=== PATIENT | female | born 1955 | race Caucasian/White ===

== ENCOUNTER 2019-05-01 06:27 | Emergency (ER) | payer BC, SELFPAY ==
[2019-05-01 06:32] VITALS: BP 176/111; PULSE 73; RESP 16; TEMP 36.5; O2SAT 99
--- NOTE | 2019-05-01 06:42 | ED.GENADUL_ITS ---
Discharge Plan Disposition Patient Disposition: HOME Condition: Good Discharge Details Chief Complaint: Nausea/Vomit/Diar Clinical Impression: Dehydration, Nausea Primary Care Provider: None,None ED Provider: Provider,Temporary Home Meds and New Rx's Prescriptions: No Action acetaminophen [Tylenol] 325 MG tablet 2 mg PO PRN PRNRF: 0 aspirin 325 MG tablet 1 mg PO PRN PRNRF: 0 Discharge Instructions Instructions: Dehydration (ED), Diet for Stomach Ulcers and Gastritis (ED) Additional Instructions: At this time your labs and heart markers show no signs of a heart attack. Your electrolytes are normal. Your renal function is good. Please continue to drink 10 to 12 cups of water per day. Avoid spicy foods, citrus foods, and tomato- based products. Please follow-up closely with your primary care provider. If your symptoms return I would recommend taking some Maalox to help with your symptoms. If you notice any worsening of your symptoms, or any new symptoms such as vomiting, diarrhea, fever, chills, shortness of breath, chest pain, numbness, weakness, or fainting , please return immediately to the emergency department for reevaluation. Please follow up with your primary care provider as soon as possible for reassessment and reevaluation. As always, it was a pleasure participating in your medical care today. Medical Decision Making This is a 63-year-old female with no significant past medical history except for chronic tinnitus which she states is from her occupation who presents today for evaluation of multiple nonspecific symptoms. Symptoms include but are not limited to nausea, mild dizziness, chronic tinnitus, swelling by her earlobes and her TMJ bilaterally, intermittent foot redness and tingling that is not present here currently, mild fatigue, generalized malaise. Patient states that the symptoms have a notable chronic component, however were all significantly worsened 3 days ago when she ate some sugary treats at a family member's birthday green party. Things were fine shortly after that however when she awoke this morning she again felt odd. She denies any other particular aggravating or relieving factors. Patient's physical exam is notably nonspecific. No focal neurologic deficits, no nystagmus, no abdominal pain on palpation. No focal abnormalities that I can appreciate. Differential includes mild dehydration, mild gastric ulcer or gastritis, potential virus, and much less likely cardiac etiology. However out of an abundance of precaution we will evaluate for all these concerning etiologies. We will rehydrate, treat and reassess. 7:48 AM Laboratory work-up reveals no white count, normal electrolytes, stable renal fun ction, unremarkable glucose magnesium and calcium. Lipase and troponin normal, EKG unremarkable. Thyroid function normal, urinalysis is unremarkable. Patient has complete resolution of her symptoms after GI cocktail meclizine and fluids. She is feeling much better. She is refusing any additional imaging including chest x-ray. Patient's atypical symptoms began between 3 and 4 AM, it is been o lian 3-1/2 hours since symptom onset, there is no indication for repeat EKG or troponin. Signs and symptoms are clinically consistent inconsistent with ACS, clinically consistent with mild dehydration and mild gastric irritation. Recommend diet changes, continued fluids at home, close follow-up with PCP. Discussed red flags which to return. I have extensively reviewed the treatment plan and discharge instructions with the patient and their family. I have addressed all patient concerns at this time. The patient and family was made aware of what symptoms to monitor for that would warrant a return to the emergency department. Discussed the plan with the patient and family, they demonstrate verbal understanding and agreement with our assessment and plan at this time. EKG 6: 50 Rate 63, intervals normal, sinus rhythm, no significant ST elevations or depressions, no evidence of STEMI. Inverted T wave is present in V1. No other abnormalities. HPI General Date/Time Provider Initiated Documentation: 05/01/19 06:30 . HPI Narrative: This is a 63-year-old female with no significant past medical history except for chronic tinnitus which she states is from her occupation who presents today for evaluation of multiple nonspecific symptoms. Symptoms include but are not limited to nausea, mild dizziness, chronic tinnitus, swelling by her earlobes and her TMJ bilaterally, intermittent foot redness and tingling that is not present here currently, mild fatigue, generalized malaise. Patient states that the symptoms have a notable chronic component, however were all significantly worsened 3 days ago when she ate some sugary treats at a family member's birthday green party. Things were fine shortly after that however when she awoke this morning she again felt odd. She denies any other particular aggravating or relieving factors. She denies any vomiting. She denies any falls or trauma. She denies any room spinning sensation. She denies any visual disturbance. She denies any chest pain, chest heaviness, chest tightness, shortness of breath, tearing sensation in the chest, arm or neck pain. She has no other complaints at this time. No other modifying factors. Family history is positive for heart disease in her father, as well as thyroid disease, and previous smoking history 11 years ago. Related Data Home Medications Medication Instructions Recorded Confirmed acetaminophen [Tylenol] 2 mg PO PRN PRN 01/28/13 05/01/19 aspirin 1 mg PO PRN PRN 01/28/13 05/01/19 Allergies Allergy/AdvReac Type Severity Reaction Status Date / Time No Known Allergies Allergy Unverified 01/28/13 09:41 General Stated Complaint: Nausea/Vomit/Diar VARUN: 3 Review of Systems All systems reviewed & are unremarkable except as noted in HPI and below PFSH Social History Smoking/Tobacco Use Status: Former Tobacco Use Alcohol Intake: current Alcohol Intake frequency: holidays/special occasions only Drug use: Never Substance use type: does not use Do you feel safe at home: Yes Do you feel safe in your relationship?: Yes Exam Narrative Exam Narrative: 1.Const: Well-nourished, Well-developed, appearing stated age 2.Eyes: PERRL, no conjunctival injection, and symmetrical lids. No horizontal vertical or rotatory nystagmus. 3.ENT: Atraumatic external nose and ears. Dry MM. Neck: Symmetric, trachea midline, No thyromegaly. Tympanic membranes guillaume and pearly bilaterally. No evidence of effusion or bulging. No swelling over the mastoid process, or the ear or the TM joint. Patient demonstrates good movement of cervical neck. There is no nuchal rigidity, no nuchal tenderness. Patient is able to flex the neck without any difficulty or significant pain. Negative Kernig's and Brudzinski sign. 4.CVS: +S1/S2, No murmurs or gallops. Peripheral pulses 2+ and equal in all extremities. Brisk capillary refill in all extremities. 5.RESP: Unlabored respiratory effort. Clear to auscultation bilaterally. No wheezes rales or rhonchi 6.GI: Soft, Nontender/Nondistended, No hepatosplenomegaly. No guarding or rebound. No pain at McBurney's point, negative Gardner sign. No epigastric tenderness. 7.MSK: Normocephalic/Atraumatic, Extremities w/o deformity or ttp No cyanosis or clubbing, Normal movement of all extremities, no calf tenderness. 8.Skin: Warm, Dry. No rashes or lesions. No redness. 9.Neuro: housekeeping worker II-XII grossly intact. Sensation grossly intact, no focal neurologic deficits. All 6 cardinal planes of vision are fully intact. No evidence of rotatory or vertical nystagmus. The patient demonstrated a normal slvtcv-gjvs-tinyyo, good dexterity. There was no evidence of dysdiadochokinesia. Patient was able to ambulate without difficulty. There was no wide-based gait.Sensation was intact bilaterally as well as muscle strength bilaterally for all extremities. no slurring, or miss pronunciation. 10.Psych: (AAO) x3. Appropriate mood and affect Course Vital Signs Vital signs: Vital Signs Temperature 36.5 C 05/01/19 06:32 Pulse 73 05/01/19 06:32 Respiratory Rate 16 05/01/19 06:32 Blood Pressure 176/111 H 05/01/19 06:32 Pulse Oximetry 99 05/01/19 06:32 Temperature 36.5 C 05/01/19 06:32 Temperature Source Skin 05/01/19 06:32 Pulse 73 05/01/19 06:32 Respiratory Rate 16 05/01/19 06:32 Blood Pressure 176/111 H 05/01/19 06:32 Blood Pressure Position Sitting 05/01/19 06:32 Pulse Oximetry 99 05/01/19 06:32 Oxygen Delivery Method Room Air 05/01/19 06:32 Oxygen Flow Rate 0 05/01/19 06:32 Sign Out Sign Out Data: Sign Out Comment: Make symptoms of dizziness, nausea, mild malaise. Appears mildly dehydrated. Treating with meclizine, GI cocktail, fluids. Reevaluate after cardiac work-up and labs return Last updated by Jg Ann DO at 05/01/19 06:53
[2019-05-01] MEDS: Meclizine 25 MG TAB PO (06:45)
[2019-05-01] MEDS: Ondansetron 4 MG/2 ML VIAL IVP (06:46)
[2019-05-01 06:58] LABS: Abs Immature Grans 0.01 k/cumm (0.0-0.09); Absolute Basophil Count 0.03 k/cumm (0.0-0.2); Absolute Eosinophil Count 0.65 k/cumm (0.0-0.7); Absolute Lymphocyte Count 2.03 k/cumm (1.2-3.4); Absolute Monocyte Count 0.55 k/cumm (0.11-0.7); Basophils % 0.3; Eosinophils % 7.4; HCT 44.7 % (36.0-46.0); HGB 14.6 g/dL (12.0-15.5); Immature Grans % 0.1 %; Lymphocytes % 23.1; Mean Corp. HGB Concentration 32.7 g/dL (32.0-36.0); Mean Corpuscular Hemoglobin 29.3 pg (27.0-33.0); Mean Corpuscular Volume 89.6 fL (80-95); Mean Platelet Volume 9.7 fL (8.0-11.0); Monocytes % 6.3; Neutrophils % 62.8; Platelet Count 334 x1000/uL (130-400); RBC 4.99 m/cumm (4.00-5.20); RBC Distribution Width 13.6 % (11.7-14.6); White Blood Cell Count 8.77 k/cumm (4.4-10.8)
[2019-05-01 07:10] LABS: Bilirubin Negative (Negative); Blood Negative (Negative); Clarity Clear (Clear); Glucose Negative (Negative); Ketones Negative (Negative); Leukocyte Esterase Small (Negative); Nitrite Negative (Negative); Urobilinogen 0.2 EU/dL (Up TO 0.2); pH 6.5 (5-8)
[2019-05-01 07:12] LABS: PTT Activated 28.3 sec (21.0-31.4); Prothrombin Time 10.1 sec (9.3-11.0)
[2019-05-01 07:13] LABS: ALT 40 U/L (14-59); AST 27 U/L (15-37); Albumin 3.7 g/dL (3.4-5.0); Alkaline Phosphatase 161 U/L (46-116); Anion Gap 11.6 mmol/L (3-11); BUN 14 mg/dL (7-18); Bilirubin, Total 0.4 mg/dL (0.2-1.0); CO2 24.4 mmol/L (21.0-32.0); CREATININE 1.07 mg/dL (0.55-1.02); Calcium 9.2 mg/dL (8.5-10.1); Chloride 105 mmol/L (98-107); Estimated GFR 52.13 (mL/min/1.73m2); Glucose 114 mg/dL (74-106); Lipase 163 U/L (73-393); Potassium 3.7 mmol/L (3.5-5.1); Sodium 141 mmol/L (136-145); Total Protein 7.6 g/dL (6.4-8.2)
[2019-05-01 07:16] LABS: Troponin I < 0.05 ng/Ml (<0.06)
[2019-05-01] MEDS: Normal Saline 1,000 ML 1000 ML IV (07:18)
[2019-05-01 07:19] LABS: Magnesium 2.2 mg/dL (1.8-2.4)
[2019-05-01 07:34] LABS: TSH (W/Ref FT4) 2.61 uIU/mL (0.36-3.74)
[2019-05-01 07:44] LABS: Bacteria Rare HPF (Negative); C & S Indicated? Yes; Casts Negative LPF (Negative); Crystals Negative HPF (Negative); Epithelial Cells Few HPF (Negative); Mucus Trace (Negative); Other Cells Rare Renal (Negative); RBC 0-2 HPF (0-2)
[2019-05-01 07:54] VITALS: BP 143/69; PULSE 61; RESP 15; TEMP 36.7; O2SAT 98
[2019-05-01 08:02] VITALS: BP 143/69; PULSE 61; RESP 15; TEMP 36.7; O2SAT 98
== END 2019-05-01 08:06 | disposition home or self-care (01) ==
PROVIDERS: Emergency Provider Student in an Organized Health Care Education/Training Program
DX: R11.0 Nausea (principal); E86.0 Dehydration; R42 Dizziness and giddiness; H93.19 Tinnitus, unspecified ear
CPT/HCPCS: 36415; 80053; 83690; 93005; 96361; 96374; 99284; 81003; 81015; 83735; 84443; 84484; 85025; 85610; 85730; 87086; 93010; J2405

== ENCOUNTER 2021-03-17 09:38 | Emergency (ER) | payer BC, SELFPAY ==
[2021-03-17] VITALS (21 sets, daily range): BP systolic 121–163; BP diastolic 66–91; PULSE 51–65; RESP 12–22; TEMP 36.6; O2SAT 95–98
--- NOTE | 2021-03-17 09:30 | RT.EKG_ITS ---
APPROVED REPORT Exam: Resting ECG Reason for Exam: high blood pressure Patient Location: E HR:60 bpm ECG Measurements Heart Rate 60 AXIS NE 145 P 56 QRSd 103 QRS 26 QT 427 T 50 QTc 428 Conclusion Sinus rhythm...normal P axis, V-rate 60- 99 Sinus. No STEMI. I have reviewed and interpreted ECG and agree with software generated interpretation.
--- NOTE | 2021-03-17 10:02 | ED.GENADUL_ITS ---
Discharge Plan Disposition Patient Disposition: HOME Condition: Improving Discharge Details Clinical Impression: Hypertension, Dizziness, Fatigue Primary Care Provider: None,None ED Provider: Beata Lorenzo Home Meds and New Rx's Prescriptions: Continued aspirin 325 MG tablet 365 mg PO PRN PRNRF: 0 Discharge Instructions Instructions: Hypertension (ED), Dizziness (ED), Fatigue (ED) Additional Instructions: Your lab work, EKGs and imaging today is reassuring and shows no evidence of acute abnormal findings. It is recommended that you limit sodium in your diet as this may contribute to high blood pressure. Check your blood pressure regularly. Drink plenty of fluids and get plenty of rest. You will receive a call from care management regarding a follow-up appointment with a primary care doctor to establish care and for recheck and continued monitoring of your blood pressure. Return immediately to the emergency department if you develop any worsening or new concerning symptoms. 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 BP per the school nurse noted a systolic of 187. Blood pressure on arrival here 162/82. Still complains of head pressure. She denies any chest pain. EKG noted a rate of 60, sinus, no STEMI nondiagnostic. She has no focal deficits on exam. She appears slightly anxious but nontoxic. Differential diagnosis includes anxiety, electrolyte abnormality, dehydration, CVA. History and presentation does not appear consistent with acs, aortic dissection or PE. Will place an IV, bolus IV fluids, screening labs, CT head, chest x-ray and reassess. Labs and imaging reviewed and unremarkable. Trop and d-dimer within normal limits. CT head and CXR negative. Pt agreeable to stay for repeat troponin which was negative and repeat EKG unchanged. BP 135/72. Pt reassessed and she denied any headache, dizziness or chest pain and she is requesting to go home. Heart score 2. Pt was placed on care management list to establish care with a pcp and for re-evaluation. Advised to continue to monitor her blood pressure at home. Usual and customary return precautions given prior to discharge. Medical Records Medical records reviewed: Yes I reviewed the patient's medical records. Imaging Data Radiologic Study: Radiologist's impression: XR CHEST 2V PA LATERAL CLINICAL HISTORY: palpitations, r/o acute disease. TECHNIQUE: 2D digital imaging was performed. COMPARISON: No exams were available for comparison FINDINGS: Heart size is normal. The mediastinum is not widened. Lungs are clear. No infiltrates nor pleural effusions. IMPRESSION: No acute pulmonary findings. CT HEAD WO CLINICAL HISTORY: head pressure, r/o acute cva. TECHNIQUE: Imaging Protocol: Axial computed tomography images with coronal and sagittal reformatted images were created and reviewed COMPARISON: No exams were available for comparison FINDINGS: There are no skull fractures nor fluid in the visualized paranasal sinuses. There is no evidence of intracranial hemorrhage, mass effect, or shift of midline structures. There are no extra-axial fluid collections. The ventricles are not enlarged or shifted and there is no blood within the ventricular system nor within the basal cisterns. IMPRESSION: No acute intracranial findings on this noninfused CT scan of the brain. Lab Data Lab results reviewed: Yes I reviewed the patient's lab results. Labs: Laboratory Tests Range/Units 03/17/21 03/17/21 03/17/21 09:50 09:50 09:50 WBC (4.4-10.8) 10^3/uL 8.63 RBC (3.93-5.22) 10^6/uL 4.72 Hgb (11.2-15.7) g/dL 13.7 Hct (36.0-46.0) % 42.4 MCV (80-95) fL 89.8 MCH (27.0-33.0) pg 29.0 MCHC (32.0-36.0) % 32.3 RDW (11.7-14.6) % 13.0 Plt Count (130-400) 10^3/uL 306 MPV (8.0-11.0) fL 9.8 Immature Gran % 0.3 Neutrophils % 65.4 Lymphocytes % 23.4 Monocytes % 5.2 Eosinophils % 5.4 Basophils % 0.3 Nucleated RBC % % 0 Absolute Neutrophils (1.2-6.7) 10^3/uL 5.63 Absolute Lymphocytes (1.2-3.4) 10^3/uL 2.02 Absolute Monocytes (0.1-0.8) 10^3/uL 0.45 Absolute Eosinophils (0.0-0.7) 10^3/uL 0.47 Absolute Basophils (0.0-0.2) 10^3/uL 0.03 D-Dimer (<500) ng/mlFEU Sodium (136-145) mmol/L 140 Potassium (3.5-5.1) mmol/L 4.0 Chloride (98-107) mmol/L 104 Carbon Dioxide (21.0-32.0) mmol/L 25.9 Anion Gap (3-11) mmol/L 10.1 BUN (7-18) mg/dL 20 H Creatinine (0.55-1.02) mg/dL 0.9 Estimated GFR/1.73 m2 (mL/min/1.73m2) >= 60.00 Glucose (74-106) mg/dL 106 Calcium (8.5-10.1) mg/dL 9.3 Magnesium (1.8-2.4) mg/dL 2.1 Total Bilirubin (0.2-1.0) mg/dL 0.3 AST (15-37) U/L 21 ALT (14-59) U/L 34 Alkaline Phosphatase (46-116) U/L 174 H Troponin I (<0.06) ng/mL < 0.05 Total Protein (6.4-8.2) g/dL 7.8 Albumin (3.4-5.0) g/dL 3.8 TSH (0.36-3.74) uIU/mL 2.17 Range/Units 03/17/21 03/17/21 12:10 13:00 WBC (4.4-10.8) 10^3/uL RBC (3.93-5.22) 10^6/uL Hgb (11.2-15.7) g/dL Hct (36.0-46.0) % MCV (80-95) fL MCH (27.0-33.0) pg MCHC (32.0-36.0) % RDW (11.7-14.6) % Plt Count (130-400) 10^3/uL MPV (8.0-11.0) fL Immature Gran % Neutrophils % Lymphocytes % Monocytes % Eosinophils % Basophils % Nucleated RBC % % Absolute Neutrophils (1.2-6.7) 10^3/uL Absolute Lymphocytes (1.2-3.4) 10^3/uL Absolute Monocytes (0.1-0.8) 10^3/uL Absolute Eosinophils (0.0-0.7) 10^3/uL Absolute Basophils (0.0-0.2) 10^3/uL D-Dimer (<500) ng/mlFEU 352 Sodium (136-145) mmol/L Potassium (3.5-5.1) mmol/L Chloride (98-107) mmol/L Carbon Dioxide (21.0-32.0) mmol/L Anion Gap (3-11) mmol/L BUN (7-18) mg/dL Creatinine (0.55-1.02) mg/dL Estimated GFR/1.73 m2 (mL/min/1.73m2) Glucose (74-106) mg/dL Calcium (8.5-10.1) mg/dL Magnesium (1.8-2.4) mg/dL Total Bilirubin (0.2-1.0) mg/dL AST (15-37) U/L ALT (14-59) U/L Alkaline Phosphatase (46-116) U/L Troponin I (<0.06) ng/mL < 0.05 Total Protein (6.4-8.2) g/dL Albumin (3.4-5.0) g/dL TSH (0.36-3.74) uIU/mL ECG Data Attestation: I personally reviewed and interpreted this ECG (s) as follows: Interpretation: #1 -- Rate of 60, sinus, no acute ST elevation or depression, [place] 145. QTc 428. #2 -- Rate of 53, sinus, no acute ST elevation or depression, [place] 156, QTc 437. HPI General Mode of arrival: ambulatory . Date/Time Provider Initiated Documentation: 03/17/21 09:57 . Limitations to Documentation: no limitations . Information obtained by: patient . HPI Narrative: Patient is a 65-year-old female who presents for a complaint of head pressure, shaking, lightheadedness, tingling in hands and feet, feeling of heart pounding and sweating that occurred while throwing a basketball at work. Patient states she was in the gym tossing a basketball around when she felt head pressure then nausea, lightheaded, sweating, shaking and tingling in her hands and feet. She states the head pressure is still present and 7/10. She denies any sensation of chest pain, shortness of breath, vomiting, abdominal pain, diarrhea or recent illness. She states she has been quite active recently, with a lot of housework and busy with her job. She is fully vaccinated and denies any known exposure to Covid. She denies any known history of high blood pressure and states the nurse today took her blood pressure and there was a systolic of 187. Related Data Home Medications Medication Instructions Recorded Confirmed aspirin 365 mg PO PRN PRN 01/28/13 03/17/21 Allergies Allergy/AdvReac Type Severity Reaction Status Date / Time No Known Allergies Allergy Unverified 03/17/21 09:52 General Stated Complaint: Dizzy/Sync VARUN: 2 Review of Systems All systems reviewed & are unremarkable except as noted in HPI and below Constitutional Constitutional: Reports as per HPI, Denies chills, Denies fever(s) and Reports headache(s) (head pressure) Eyes Eyes: Denies blurry vision ENT Ears, Nose, Mouth, and Throat: Reports dizziness, Reports headache(s) (head pressure), Denies sore throat and Denies throat swelling Cardiovascular Cardiovascular: Denies chest pain, Reports palpitations and Denies dyspnea Respiratory Respiratory: Denies cough and Denies dyspnea Gastrointestinal Gastrointestinal: Denies abdominal pain, Denies diarrhea and Denies vomiting Genitourinary Genitourinary: Denies hematuria and Denies dysuria Musculoskeletal Musculoskeletal: Denies back pain, Denies numbness and Reports tingling (in hands and feet) Integumentary/Breasts Skin/Breast: Denies lesions and Denies rash Neurologic Neurologic: Reports dizziness, Reports headache(s) (head pressure), Denies localized weakness, Denies numbness and Reports tingling (in hands and feet) Endocrine Endocrine: Reports palpitations Allergic/Immunologic Allergic/Immunologic: Denies throat swelling FOR[facility]LY [facility], 1928–1983 Active Problem List (Updated 03/17/21 @ 15:06 by Beata Lorenzo DO) Hypertension (Chronic) Dizziness (Acute) Fatigue (Acute) Medical History (Updated 03/17/21 @ 15:06 by Beata Lorenzo DO) No significant past medical history Surgical History (Updated 03/17/21 @ 11:39 by Beata Lorenzo DO) History of ankle surgery Social History Smoking/Tobacco Use Status: Former Tobacco Use Smoking risk assessment performed?: Yes Alcohol Intake: current Alcohol Intake frequency: holidays/special occasions only Drug use: Never Substance use type: does not use Do you feel safe at home: Yes Do you feel safe in your relationship?: Yes Exam Const General: cooperative, healthy appearing and no acute distress HENMT Head: normal to inspection Face and sinus: normal facial exam Eyes General: appearance normal, both eyes and all related structures Pupils: PERRL EOM: EOM intact bilaterally Neck Neck: normal visual inspection and No submandibular swelling Lymphatic: no lymphadenopathy noted Chest Chest: normal inspection of the chest and no tenderness Resp Effort & Inspection: normal respiratory effort and able to speak in complete sentences Auscultation: clear to auscultation bilaterally Cardio Rate: regular rate Rhythm: regular rhythm GI Inspection: normal to inspection Palpation: soft, not firm, not rigid and nontender Auscultation: normal bowel sounds Skin General skin exam: no rashes or lesions noted Neuro General: patient alert, patient awake, patient oriented x3, moves all extremities, no meningeal signs and no focal motor deficits Cranial Nerves: CN's II-XI intact bilaterally Cognition: normal cognition Speech: speech normal Motor: muscle tone normal throughout and strength 5/5 throughout Sensory Exam: no sensory deficits noted Extrem General: normal to inspection, full ROM, capillary refill normal, no calf tenderness bilaterally and no edema Psych Appearance: grossly normal Mental Status: mental status grossly normal Speech and Movement: speech and movement normal Affect: normal affect Course Vital Signs Vital signs: Vital Signs Temperature 97.8 F 03/17/21 09:43 Pulse 65 03/17/21 09:43 Respiratory Rate 21 03/17/21 09:43 Blood Pressure 162/82 H 03/17/21 09:43 Pulse Oximetry 98 03/17/21 09:43 Temperature 97.8 F 03/17/21 09:43 Temperature Source Oral 03/17/21 09:43 Pulse 65 03/17/21 09:43 Respiratory Rate 20 03/17/21 09:56 Respiratory Effort 03/17/21 09:56 Respiratory Depth Normal 03/17/21 09:56 Respiratory Pattern Normal 03/17/21 09:56 Blood Pressure 162/82 H 03/17/21 09:43 Blood Pressure Position Supine 03/17/21 09:43 Pulse Oximetry 98 03/17/21 09:43 Oxygen Delivery Method Room Air 03/17/21 09:43 Oxygen Flow Rate 0 03/17/21 09:43 Pain Level 0 03/17/21 09:43
[2021-03-17 10:25] LABS: Abs Immature Grans 0.03 10^3/uL (0.0-0.06); Absolute Basophil Count 0.03 10^3/uL (0.0-0.2); Absolute Eosinophil Count 0.47 10^3/uL (0.0-0.7); Absolute Lymphocyte Count 2.02 10^3/uL (1.2-3.4); Absolute Monocyte Count 0.45 10^3/uL (0.1-0.8); Absolute Neutrophil Count 5.63 10^3/uL (1.2-6.7); Basophils % 0.3; Eosinophils % 5.4; HCT 42.4 % (36.0-46.0); HGB 13.7 g/dL (11.2-15.7); Immature Grans % 0.3; Lymphocytes % 23.4; MCHC 32.3 % (32.0-36.0); MCV 89.8 fL (80-95); MPV 9.8 fL (8.0-11.0); Monocytes % 5.2; Neutrophils % 65.4; Nucleated RBC 0 %; Platelet Count 306 10^3/uL (130-400); RBC 4.72 10^6/uL (3.93-5.22); RDW-SD 42.6 fL; WBC 8.63 10^3/uL (4.4-10.8)
[2021-03-17 10:41] LABS: ALT 34 U/L (14-59); AST 21 U/L (15-37); Albumin 3.8 g/dL (3.4-5.0); Alkaline Phosphatase 174 U/L (46-116); Anion Gap 10.1 mmol/L (3-11); BUN 20 mg/dL (7-18); Bilirubin, Total 0.3 mg/dL (0.2-1.0); CO2 25.9 mmol/L (21.0-32.0); CREATININE 0.9 mg/dL (0.55-1.02); Calcium 9.3 mg/dL (8.5-10.1); Chloride 104 mmol/L (98-107); Glucose 106 mg/dL (74-106); Magnesium 2.1 mg/dL (1.8-2.4); Sodium 140 mmol/L (136-145); Total Protein 7.8 g/dL (6.4-8.2)
[2021-03-17 10:42] LABS: Troponin I < 0.05 ng/mL (<0.06)
[2021-03-17] MEDS: Ondansetron 4 MG/2 ML VIAL IVP (11:07)
--- NOTE | 2021-03-17 11:50 | DI.CT_ITS ---
Exam(s) CT HEAD WO EXAM: CT HEAD WO CLINICAL HISTORY: head pressure, r/o acute cva. TECHNIQUE: Imaging Protocol: Axial computed tomography images with coronal and sagittal reformatted images were created and reviewed COMPARISON: No exams were available for comparison FINDINGS: There are no skull fractures nor fluid in the visualized paranasal sinuses. There is no evidence of intracranial hemorrhage, mass effect, or shift of midline structures. There are no extra-axial fluid collections. The ventricles are not enlarged or shifted and there is no blo od within the ventricular system nor within the basal cisterns. IMPRESSION: No acute intracranial findings on this noninfused CT scan of the brain. RADIATION DOSE DELIVERED: 621.91mGy.cm Total DLP DATA REPOSITORY: All CT scans at this facility are submitted to the National Radiology Data Registry (NRDR) Dose Index Registry (DIR) with the [employer] ([employer]). RADIATION OPTIMIZATION: All CT scans at this facility use at least one of these dose optimization te chniques: automated exposure control; mA and/or kV adjustment per patient size (includes targeted exa ms where dose is matched to clinical indication); or iterative reconstruction.
--- NOTE | 2021-03-17 11:52 | DI.RAD_ITS ---
Exam(s) XR CHEST 2V PA LATERAL EXAM: XR CHEST 2V PA LATERAL CLINICAL HISTORY: palpitations, r/o acute disease. TECHNIQUE: 2D digital imaging was performed. COMPARISON: No exams were available for comparison FINDINGS: Heart size is normal. The mediastinum is not widened. Lungs are clear. No infiltrates nor pleural effusions. IMPRESSION: No acute pulmonary findings. DATA REPOSITORY: RADIATION DOSE DELIVERED:
[2021-03-17] MEDS: Normal Saline 1,000 ML 1000 ML IV (12:08)
[2021-03-17] MEDS: ACETAMINOPHEN 1,000 MG/100 ML BTL 400 MG IVPB (12:08)
--- NOTE | 2021-03-17 12:45 | RT.EKG_ITS ---
APPROVED REPORT Exam: Resting ECG Reason for Exam: palpitations Patient Location: E HR:53 bpm ECG Measurements Heart Rate 53 AXIS [place] 156 P 52 QRSd 107 QRS 22 QT 467 T 31 QTc 437 Conclusion Sinus bradycardia...rate< 60. Sinus. No STEMI. I have reviewed and interpreted ECG and agree with software generated interpretation.
[2021-03-17 12:51] LABS: D-Dimer 352 ng/mlFEU (<500)
[2021-03-17 13:23] LABS: TSH (W/Ref FT4) 2.17 uIU/mL (0.36-3.74)
[2021-03-17 13:26] LABS: Troponin I < 0.05 ng/mL (<0.06)
--- NOTE | 2021-03-18 09:24 | NUR.NOTE ---
Nursing Note: Referral given to Care Management for high B/P, establish care within 2 weeks with new PCP. Anne Smith
--- NOTE | 2021-03-18 12:59 | CMACTNOTE_ITS ---
- If Service Date Differs Date of service: 03/18/21 Time of Service: 12:59 Care Management Activity Note Renetta is seen in the ED for hypertension, dizziness and fatigue. At the request of ED provider, CM coordinates a referral to Wong Canales MD, of [facility], on-call provider, to assist Renetta in obtaining a follow up appointment and in establishing care with a PCP.
== END 2021-03-17 14:30 | disposition home or self-care (01) ==
PROVIDERS: Emergency Provider Physician Assistant; PCP Family Medicine
DX: I10 Essential (primary) hypertension (principal); R42 Dizziness and giddiness; R53.83 Other fatigue; R00.2 Palpitations
CPT/HCPCS: 36415; 80053; 93005; 96361; 96365; 96375; 99285; 70450; 71046; 83735; 84443; 84484; 85025; 85379; 93010; 99284; J0131; J2405

== ENCOUNTER 2021-06-05 11:17 | Outpatient (REF) | payer BC, SELFPAY ==
--- NOTE | 2021-06-05 11:00 | PAPFT_PTH ---
PATIENT: Renetta Butler LOC: [facility] U#:[id number] AGE/SX: 65/F ROOM: RE06/05/[address]: CHANNING Davila : 1955 BED: DIS: 06/05/2021 SPEC #: [id number] RECD: 06/05/21 13:02 STATUS: CHRISTY REManuel #: [id number] ROJAS: 06/05/21 11:[address]: Elisabeth Franco DEPT: [facility] Cytology RECD BY: Maria Teresa Mcrae ENTERED: 06/05/21 13:02 SP TYPE: PAPFT YOSIHR DR: Wong Canales Tissues: 1 - CX/ENDOCX FOR PAP SMEARS Procedures: PAP THIN PREP/UVM Screening HPV DNA PROBE Comments: [id number]
== END 2021-06-05 11:18 | disposition home or self-care (01) ==
LOC: LBN 11:17
PROVIDERS: PCP Family Medicine; Visit Provider Nurse Practitioner Family
DX: Z12.4 Encounter for screening for malignant neoplasm of cervix (principal); Z11.51 Encounter for screening for human papillomavirus (HPV)
CPT/HCPCS: 88142; 87624

== ENCOUNTER 2021-06-09 00:48 | Outpatient (CLI) | payer BC, SELFPAY ==
--- NOTE | 2021-06-09 07:15 | DI.MAMMO_ITS ---
Exam(s) MAMMO SCREENING EXAM: MAMMO SCREENING CLINICAL HISTORY: screening,z12.39 TECHNIQUE: Bilateral full field digital CC and MLO mammographic images were obtained with 3D tomosyn thesis and utilizing computer aided detection (CAD). COMPARISON: None. Last mammogram 2008. FINDINGS: Masses/Architectural Distortion: None seen. Microcalcifications: No suspicious pleomorphic-type are seen. Skin Thickening/Nipple Retraction: None. Biopsy marker clip central right breast. IMPRESSION: 1. no specific features of malignancy noted. 2. Unless there is more urgent need, screening mammography is recommended, as per [employer] guidelines. BI-RADS Category 1 - Negative Breast Density - Category C - Heterogeneously dense Breast density category C or D implies that the patient has dense breast tissue. Dense breast tissue is very common and is not abnormal but dense breast tissue can make it harder to find cancer on a ma mmogram. Also, dense breast tissue may increase their breast cancer risk. This information about the result of the mammogram report was provided to the patient to raise their awareness. Use this report when you speak with the patient about their risks for breast cancer, which includes their family hist ory. At that time, you may recommend for more screening tests (Ultrasound or MRI) as they might be us eful based on their risk. A negative radiographic report should not delay biopsy if a dominant or clinically suspicious mass is present. Up to ten percent of cancers are not identified on mammography. A negative report may reinforce clinical impression. Adenosis and dense breasts may obscure an underlying neoplasm. False positive reports average 6 to 10%. Patient will receive a letter notifying them of these results.
== END 2021-06-09 01:08 ==
PROVIDERS: PCP Family Medicine; Visit Provider Nurse Practitioner Family
DX: Z12.31 Encounter for screening mammogram for malignant neoplasm of breast (principal)
CPT/HCPCS: 77063; 77067

== ENCOUNTER 2024-08-29 01:05 | Outpatient (CLI) | payer BC, SELFPAY ==
--- NOTE | 2024-08-29 | DI.MAMMO_ITS ---
Exam(s) MAMMO SCREENING EXAM: MAMMO SCREENING CLINICAL HISTORY: SCREENING MAMMO Z12.31 TECHNIQUE: Mammograms were interpreted according to the usual protocol including computer analysis w [employer] CAD system, tomosynthesis and C-view imaging. COMPARISON: 2021 FINDINGS: The breasts are composed of heterogeneously dense fibroglandular densities, Breast Density category C . No suspicious masses or suspicious microcalcifications are seen. Biopsy marker clip noted in central right breast. No skin thickening or abnormal axillary lymph nodes are seen. There has been no significant change from prior exams. IMPRESSION: BI-RADS Category 1, Negative mammogram. Yearly screening mammography is recommended. Breast Density Category C, heterogeneously Dense. Breast density Category C or D implies that the patient has dense breast tissue. Dense breast tissue can make it harder to find cancer on a mammogram. Dense breast tissue is also associated with an incr eased risk of breast cancer. This information about the result of the mammogram report was provided to the patient to raise their awareness. Use this report when you speak with the patient about their risks for breast cancer, which includes their family history. At that time, you may recommend additional screening tests (Ultrasoun d or MRI) as these tests may add significant information. A negative radiographic report should not delay biopsy if a dominant or clinically suspicious mass is present. Up to ten percent of cancers are not identified on mammography. A negative report may reinforce clinical impression. Adenosis and dense breasts may obscure an underlying neoplasm. False positive reports average 6 to 10%.
== END 2024-08-29 01:25 ==
PROVIDERS: PCP Family Medicine; Visit Provider Family Medicine
DX: Z12.31 Encounter for screening mammogram for malignant neoplasm of breast (principal); R92.333 Mammographic heterogeneous density, bilateral breasts
CPT/HCPCS: 77063; 77067